=== PATIENT | female | born 1995 | race Caucasian/White ===

== ENCOUNTER 2021-06-21 16:44 | Emergency (ER) | payer SELFPAY ==
[2021-06-21 17:16] VITALS: BP 124/67; PULSE 79; TEMP 97.9; BMI 23.1
[2021-06-21] MEDS ORDERED: SODIUM CHLORIDE 0.9% 500 ML INFUS.BAG IV ONE (17:26)
[2021-06-21] MEDS ORDERED: METOCLOPRAMIDE HCL INJECTION 10 MG/2 ML VIAL IVPUSH ONE (17:30)
[2021-06-21] MEDS ORDERED: ACETAMINOPHEN 1000 MG/100 ML BAG IVPB ONE (17:31)
[2021-06-21] MEDS ORDERED: METOCLOPRAMIDE HCL INJECTION 10 MG/2 ML VIAL ONE (17:42)
[2021-06-21] MEDS ORDERED: ACETAMINOPHEN INJECTION 100 ML IVPB ONE (17:51)
[2021-06-21 18:40] LABS: HCG,QUALITATIVE URINE Negative
[2021-06-21 19:43] LABS: URINE APPEARANCE CLEAR; URINE BILIRUBIN NEGATIVE (NEGATIVE); URINE COLOR YELLOW; URINE GLUCOSE (UA) NEGATIVE (NEGATIVE); URINE KETONE NEGATIVE (NEGATIVE); URINE LEUK ESTERASE NEGATIVE (NEGATIVE); URINE NITRITE NEGATIVE (NEGATIVE); URINE PROTEIN NEGATIVE (NEGATIVE); URINE UROBILINOGEN 0.2 mg/dL (0.2-1.0)
== END 2021-06-21 19:50 | disposition home or self-care (01) ==
LOC: JERFT 16:44 → JER 16:44 → JERFT 19:50
PROC: 3E033GC Introduction of Other Therapeutic Substance into Peripheral Vein, Percutaneous Approach (ICD-10-PCS; principal; 2021-06-21)
DX: R51.9 Headache, unspecified (principal)
CPT/HCPCS: 81003; 84703; 87086; 99284-25

== ENCOUNTER 2022-08-25 15:12 | Emergency (ER) | payer SELFPAY ==
[2022-08-25 15:21] VITALS: BP 106/74; PULSE 94; RESP 20; TEMP 97.5; BMI 30.2
[2022-08-25 17:05] LABS: THROAT:GRP A STREP NOT DETECTED (NOTDETECTED)
== END 2022-08-25 16:46 | disposition home or self-care (01) ==
LOC: JERFT 15:12
DX: R05.9 Cough, unspecified (principal); J02.0 Streptococcal pharyngitis; R09.81 Nasal congestion; B34.9 Viral infection, unspecified; R50.9 Fever, unspecified; Z20.822 Contact with and (suspected) exposure to COVID-19
CPT/HCPCS: 0241U-QW; 87651; 99283-25

== ENCOUNTER 2022-11-23 12:56 | Emergency (ER) | payer SELFPAY ==
[2022-11-23 13:03] VITALS: RESP 18; BMI 30.5
[2022-11-23 14:09] LABS: BASO % 0.4 % (0-2.0); EOS % 0.9 % (0-4.5); HEMATOCRIT 36.3 % (32.4-45.2); HEMOGLOBIN 12.3 GM/dL (10.7-15.3); LYMPH % 51.7 % (8-40); MCH 30.6 pg (25.7-33.7); MCHC 33.7 g/dl (32.0-36.0); MEAN CELL VOLUME 90.6 fl (80-96); MEAN PLT VOLUME 7.6 fl (7.5-11.1); MONO % 7.8 % (3.8-10.2); NEUT % 39.2 % (42.8-82.8); PLATELET COUNT 451 10^3/uL (134-434); RBC 4.01 M/mm3 (3.60-5.2); RDW 12.8 % (11.6-15.6); WHITE BLOOD COUNT 5.4 K/mm3 (4.0-10.0)
[2022-11-23 14:17] LABS: POTASSIUM 3.7 mmol/L (3.5-5.1)
[2022-11-23 14:19] LABS: ALBUMIN 3.3 g/dl (3.4-5.0); BLOOD UREA NITROGEN 8.2 mg/dL (7-18); CALCIUM 8.3 mg/dL (8.5-10.1)
[2022-11-23 14:22] LABS: CREATININE 0.7 mg/dL (0.55-1.3)
[2022-11-23 14:24] LABS: BILIRUBIN,TOTAL 0.5 mg/dL (0.2-1); TOT PROT 6.8 g/dl (6.4-8.2)
[2022-11-23 14:57] LABS: OPIATES, URI NEGATIVE (NEGATIVE); URINE BARBITURATES NEGATIVE (NEGATIVE); URINE BENZODIAZEPINES NEGATIVE (NEGATIVE)
[2022-11-23 14:58] LABS: PHENCYCLIDINE,URINE NEGATIVE (NEGATIVE)
[2022-11-23 15:25] LABS: COCAINE, UR NEGATIVE (NEGATIVE); METHADONE, UR NEGATIVE (NEGATIVE); URINE AMPHETAMINES NEGATIVE (NEGATIVE)
[2022-11-23] MEDS ORDERED: ACETAMINOPHEN 500 MG TABLET (FP) PO ONE (16:16)
[2022-11-23] MEDS ORDERED: ACETAMINOPHEN 325 MG TABLET (FP) ONE (16:24)
[2022-11-23] MEDS ORDERED: MELATONIN 5 MG TABLETS PO ONE ×2 (16:52→23:09)
[2022-11-23] MEDS ORDERED: MELATONIN 5 MG TABLETS ONE ×2 (17:02→23:09)
[2022-11-24] MEDS ORDERED: diazePAM 5 MG TABLET PO ONE (00:30)
[2022-11-24] MEDS ORDERED: diazePAM 5 MG TABLET ONE (00:33)
[2022-11-24 06:44] VITALS: BP 107/67; PULSE 73; TEMP 99
== END 2022-11-24 11:11 | disposition home or self-care (01) ==
LOC: JER 12:56
DX: R45.851 Suicidal ideations (principal); F12.90 Cannabis use, unspecified, uncomplicated
CPT/HCPCS: 36415; 80053; 80307; 84443; 84703; 85025; 87086; 87186; 99283-25

== ENCOUNTER 2023-02-02 14:32 | Emergency (ER) | payer OTHER ==
[2023-02-02 15:21] VITALS: BP 115/66; PULSE 95; RESP 19; TEMP 98.4; BMI 30.2
[2023-02-02 17:26] LABS: URINE APPEARANCE CLEAR; URINE BILIRUBIN NEGATIVE (NEGATIVE); URINE COLOR YELLOW; URINE GLUCOSE (UA) NEGATIVE (NEGATIVE); URINE KETONE NEGATIVE (NEGATIVE); URINE LEUK ESTERASE NEGATIVE (NEGATIVE); URINE NITRITE NEGATIVE (NEGATIVE); URINE PROTEIN NEGATIVE (NEGATIVE)
[2023-02-02 17:47] LABS: HCG,QUALITATIVE URINE Negative
== END 2023-02-02 18:24 | disposition home or self-care (01) ==
LOC: JER 14:32 → JERFT 14:32
DX: R05.9 Cough, unspecified (principal); M79.10 Myalgia, unspecified site; R30.0 Dysuria; B34.9 Viral infection, unspecified; Z20.822 Contact with and (suspected) exposure to COVID-19
CPT/HCPCS: 0241U-QW; 81003; 84703; 87086; 87186; 99283-25

== ENCOUNTER 2024-04-09 13:26 | Emergency (ER) | payer OTHER ==
[2024-04-09 13:44] VITALS: BP 106/70; PULSE 97; RESP 16; TEMP 98.4; BMI 30.2
== END 2024-04-09 14:56 | disposition home or self-care (01) ==
LOC: JER 13:26
DX: R05.9 Cough, unspecified (principal); J22 Unspecified acute lower respiratory infection; R09.81 Nasal congestion; M79.10 Myalgia, unspecified site; R68.83 Chills (without fever); Z20.822 Contact with and (suspected) exposure to COVID-19
CPT/HCPCS: 0241U-QW; 99283-25